=== PATIENT | female | born 1980 | race Caucasian/White ===

== ENCOUNTER 2021-09-15 12:06 | Emergency (ER) | payer OTHER, SELFPAY ==
[2021-09-15] MEDS ORDERED: Hyoscyamine Sulfate SL 0.125 mg Tablet ONE (12:30)
[2021-09-15] MEDS ORDERED: Ondansetron ODT 4 MG TAB ONE (12:30)
[2021-09-15 12:33] LABS: Bilirubin Negative (Negative); Blood, Urine Negative (Negative); Clarity Clear (Clear); Glucose, Urine (Dipstick) Negative (Negative); Ketone, Urine 15 mg/dL (Negative); Leukocyte Negative (Negative); Nitrite Negative (Negative); Protein, Urine (Dipstick) Trace mg/dL (Neg-Trace); Urobilinogen 0.2 mg/dL (Less than 2)
[2021-09-15] MEDS ORDERED: Ondansetron PF 4 MG/2 ML Vial ONE (12:40)
[2021-09-15] MEDS ORDERED: Fentanyl 100 MCG/2 ML VIAL ONE (12:40)
[2021-09-15] MEDS ORDERED: Famotidine In NaCl 20 mg/50 ml Premix Bag ONE (12:40)
[2021-09-15 12:43] LABS: Specific Gravity, Urine 1.028 (1.002-1.036)
[2021-09-15 12:49] LABS: #Basophils 0.1 thou/uL (0.0-0.2); #Lymphocytes 1.5 thou/uL (1.20-3.40); #Monocytes 0.4 thou/uL (0.11-0.59); #Neutrophils 11.2 thou/uL (1.40-6.50); %Basophils 0.5 % (0.0-1.0); %Eosinophils 0.2 % (0.0-10.0); %Lymphocytes 11.6 % (21.0-51.0); %Monocytes 2.9 % (0.0-10.0); %Neutrophils 84.8 % (42.0-75.0); Hemoglobin 14.3 g/dL (12.0-16.0); Mean Corpuscular Hemoglobin 30.6 pg (27.0-31.0); Mean Platelet Volume 5.8 fL (7.4-10.4); Platelet Count 383 thou/uL (130-400); RBC Distribution Width 11.8 % (11.5-14.5); Red Blood Cell (RBC) Count 4.67 mill/uL (4.20-5.40); White Blood Cell (WBC) Count 13.2 thou/uL (4.8-10.8)
[2021-09-15 12:57] LABS: ALT (SGPT) 25 U/L (8-55); AST (SGOT) 17 U/L (5-34); Albumin 4.3 g/dL (3.5-5.0); Alkaline Phosphatase 71 U/L (40-110); Anion Gap 16 mmol/L (10-20); BUN (Urea Nitrogen) 20 mg/dL (7.0-18.7); Bilirubin, Total 0.5 mg/dL (0.2-1.2); Calc. Creatinine Clearance 0 mL/min (70-130); Calcium 9.3 mg/dL (7.8-10.44); Carbon Dioxide 23 mmol/L (22-29); Chloride 103 mmol/L (98-107); Globulin 3.2 g/dL (2.4-3.5); Glucose 142 mg/dL (70-105); Lipase 27 U/L (8-78); Potassium 3.4 mmol/L (3.5-5.1); Protein, Total 7.5 g/dL (6.0-8.3); Sodium 139 mmol/L (136-145)
[2021-09-15 13:14] LABS: Pregnancy Test - Urine (BHCG) Negative (Negative); Specific Gravity 1.028 (1.002-1.036)
[2021-09-15 13:15] LABS: Pregu Control Background? CLEAR/WHITE (CLR/WHITE); Pregu Control Bar Appear? YES (CONTROL BAR)
== END 2021-09-15 13:52 | disposition home or self-care (01) ==
LOC: BURERS 12:06
DX: K80.50 Calculus of bile duct without cholangitis or cholecystitis without obstruction (principal)
CPT/HCPCS: 80053; 81003; 81025; 83690; 85025; 96374; 96375; J2405; J3010; Q0162